=== PATIENT | female | born 1975 | race Caucasian/White ===

== ENCOUNTER → 2018-02-01 | Outpatient (CLI) | payer BC | LOC: MAMMO 10:51 | DX: Z12.31 Encounter for screening mammogram for malignant neoplasm of breast (principal) ==

== ENCOUNTER 2018-11-12 21:02 | Emergency (ER) | payer OTHER ==
[~2018-11-12] VITALS: Ht 162.6 cm; Wt 81.8 kg
[2018-11-12 21:48] LABS: BASO # 0.1 (0.02-0.10); EOS # 0.1 (0.04-0.40); EOS % 0.5 % (1.0-5.0); HEMATOCRIT 41.9 % (37.0-47.0); HEMOGLOBIN 14.1 g/dL (12.5-16.0); MEAN CELL VOLUME 94 fl (78-100); MEAN CORPUSCULAR HEMOGLOBIN 32 pg (27-31); MEAN CORPUSCULAR HGB CONC 34 g/dL (33-37); MEAN PLATELET VOLUME 10.3 fl (7.4-10.4); MONO # 0.8 (0.20-0.80); NEU # 7.5 (1.40-6.50); PLATELET COUNT 196 K/mm3 (130-400); RED BLOOD COUNT 4.48 M/mm3 (4.10-5.30); RED CELL DISTRIBUTION WIDTH 12.5 % (11.5-14.5); WHITE BLOOD COUNT 10.4 K/mm3 (4.8-10.8)
[2018-11-12 22:01] LABS: ALBUMIN 4.6 g/dL (3.5-5.0); CALCIUM 9.3 mg/dL (8.4-10.2); POTASSIUM 3.8 mmol/L (3.6-5.0); TOTAL BILIRUBIN 0.9 mg/dL (0.2-1.3); TOTAL PROTEIN 7.4 g/dL (6.3-8.2)
[2018-11-12] MEDS ORDERED: FISH OIL 1000MG1 CAP PO (22:03)
[2018-11-12] MEDS ORDERED: PROZAC40 M1 PO (22:03)
[2018-11-12] MEDS ORDERED: [UNRECOGNIZED DRUG - OTHER] (22:03)
[2018-11-12] MEDS ORDERED: ALEVE220 M1 PO (22:03)
[2018-11-12] MEDS ORDERED: GOOD SENSE ASPI81 M1 PO (22:04)
[2018-11-12] MEDS ORDERED: MULTIVITAMIN1 SGL PO (22:04)
[2018-11-12 22:31] LABS: D-DIMER 0.29 mg/L FEU (0.15-0.50)
[2018-11-12 22:50] VITALS: BP 128/71
== END 2018-11-12 22:50 | disposition home or self-care (01) ==
LOC: ED 21:02
PROVIDERS: Family Medicine
DX: R07.89 Other chest pain (principal); D68.59 Other primary thrombophilia; Z90.49 Acquired absence of other specified parts of digestive tract

== ENCOUNTER → 2020-11-14 | Outpatient (CLI) | payer BC ==
[~2020-11-14] MED LIST: ALEVE220 M1 PO; FISH OIL 1000MG1 CAP PO; GOOD SENSE ASPI81 M1 PO; MULTIVITAMIN1 SGL PO; PROZAC40 M1 PO; [UNRECOGNIZED DRUG - OTHER]
== END ==
LOC: MAMMO 09:00
DX: Z12.31 Encounter for screening mammogram for malignant neoplasm of breast (principal)

== ENCOUNTER → 2021-06-17 | Outpatient (CLI) | payer BC ==
[~2021-06-17] VITALS: Ht 162.6 cm; Wt 72.7 kg
[2021-06-17] VITALS (7 sets, daily range): BP systolic 102–112; BP diastolic 68–76
[~2021-06-17] MED LIST changes: +BIOTIN1 M1 PO; +DAILY VALUE1 EACH PO; +MIRENA52 MG IU
== END ==
LOC: AMSURD 11:29
DX: U07.1 COVID-19 (principal); E66.9 Obesity, unspecified
CPT/HCPCS: M0247; Q0247

== ENCOUNTER → 2021-10-09 | Day surgery (SDC) | payer BC | LOC: MSO 07:16 | DX: Z12.11 Encounter for screening for malignant neoplasm of colon (principal); Z90.49 Acquired absence of other specified parts of digestive tract; Z79.899 Other long term (current) drug therapy; Z87.891 Personal history of nicotine dependence | CPT/HCPCS: 00812; J2704; J7120 ==